=== PATIENT | male | born 1980 | race Caucasian/White ===

== ENCOUNTER 2018-10-17 18:03 | Emergency (ER) | payer BC ==
[2018-10-17 18:13] VITALS: BMI 24.0
--- NOTE | 2018-10-17 18:14 | PDOC ---
Rapid Medical Evaluation Chief Complaint: Shortness of Breath Time Seen by Provider: 10/17/18 18:09 Medical Evaluation: Allergies Allergy/AdvReac Type Severity Reaction Status Date / Time No Known Allergies Allergy Unverified 12/12/14 17:32 10/17/18 18:10 I have performed a brief in-person evaluation of this patient. The patient presents with a chief complaint of: SOB intermittant on and off x 1 month. + suffers from Panic attacks , Had good pghysical 2 weeks ago and prescribed B12 shots/ Ekg and labs WNL Pertinent physical exam findings: Lungs clear, but still with Airhunger I have ordered the following: eKG The patient will proceed to the ED for further evaluation. Discharge Disposition - Diagnosis SOB (shortness of breath) - Referrals - Patient Instructions - Post Discharge Activity
--- NOTE | 2018-10-17 18:20 | PDOC ---
History of Present Illness - General Chief Complaint: Shortness of Breath Stated Complaint: CHEST TIGHTNESS/SOB Time Seen by Provider: 10/17/18 18:09 - History of Present Illness Initial Comments: 10/17/18 18:20 CHIEF COMPLAINT: chest tightness HISTORY OF PRESENT ILLNESS: 38 yo M with no significant PMH presents to ED with intermittent SOB x 6 days. Patient states that since he received his "B12 shot on Monday at my doctor's office, I've felt tight in the chest on and off. He states that the shortness of breath began mostly when he was lying down at night , but over the past few days has started to feel the discomfort during the day as well. He denies hx of anxiety or panic attacks but does report increased stress in the last months. 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 He saw his PCP Dr. Brett Castro one month ago and had "all the bloodwork done, and he said my sugar was maybe a little bit high and that my vitamin B was low, which is why I went to get the shot." No recent travel or sick contacts. PAST MEDICAL HISTORY: Denies past medical history FAMILY HISTORY: Denies SOCIAL HISTORY: Denies tobacco, alcohol, illicit drug use. SURGICAL HISTORY: Denies ALLERGIES: No known drug allergies REVIEW OF SYSTEMS General/Constitutional: Denies fever or chills. Denies weakness, weight change. HEENT: Denies change in vision. Denies ear pain or discharge. Denies sore throat. Cardiovascular:: Intermittent chest tightness x 6 days. Denies chest pain or shortness of breath. Respiratory: Denies cough, wheezing, or hemoptysis. Gastrointestinal: Denies nausea, vomiting, diarrhea or constipation. Denies rectal bleeding. Genitourinary: Denies dysuria, frequency, or change in urination. Musculoskeletal: Denies joint or muscle swelling or pain. Denies neck or back pain. Skin: Denies rash or easy bruising. Neurologic: Denies headache, vertigo, loss of consciousness, or loss of sensation. Psychiatric: Denies depression or anxiety. PHYSICAL EXAM General Appearance: Well-appearing, appropriately dressed. No apparent distress , no intoxication. HEENT: EOMI, PERRLA, normal ENT inspection, normal voice, TMs normal, pharynx normal. No conjunctival pallor. No photophobia, scleral icterus. Neck: Supple. Trachea midline. No tenderness, rigidity, carotid bruit, stridor , lymphadenopathy, or thyromegaly. Respiratory/Chest: Lungs CTAB. No shortness of breath, chest tenderness, respiratory distress, accessory muscle use. No crackles, rales, rhonchi, stridor , wheezing, dullness Cardiovascular: RRR. S1, S2. No JVD, murmur, bradycardia, tachycardia. Vascular Pulses: Dorsalis-Pedis (R): 2+, Dorsalis-Pedis (L): 2+ Gastrointestinal/Abdominal: Normal bowel sounds. Abdomen soft, non-distended. No tenderness or rebound tenderness. No organomegaly, pulsatile mass, guarding , hernia, hepatomegaly, splenomegaly. Lymphatic: No adenopathy, tenderness. Musculoskeletal/Extremities: Normal inspection. FROM of all extremities, normal capillary refill. Pelvis Stable. No CVA tenderness. No tenderness to extremities, pedal edema, swelling, erythema or deformity. Integumentary: Appropriate color, dry, warm. No cyanosis, erythema, jaundice or rash Neurologic: provisioning specialist II-XII intact. Fully oriented, alert. Appropriate mood/affect. Motor strength 5/5. No appreciable EOM palsy, facial droop or sensory deficit. 10/17/18 18:39 10/17/18 18:44 10/17/18 19:54 Past History - Past Medical History Allergies/Adverse Reactions: Allergies Allergy/AdvReac Type Severity Reaction Status Date / Time No Known Allergies Allergy Unverified 12/12/14 17:32 Home Medications: Ambulatory Orders Hydroxyzine HCl 50 mg PO TID PRN #21 tablet 10/17/18 COPD: No - Immunization History Immunization Up to Date: No - Suicide/Smoking/Psychosocial Hx Smoking History: Never smoked Have you smoked in the past 12 months: No Information on smoking cessation initiated: No Hx Alcohol Use: No Drug/Substance Use Hx: No *Physical Exam - Vital Signs Last Vital Signs Temp Pulse Resp BP Pulse Ox 98.6 F 80 18 120/72 98 10/17/18 18:10 10/17/18 18:10 10/17/18 18:10 10/17/18 18:10 10/17/18 18:10 Medical Decision Making - Medical Decision Making 10/17/18 19:57 38 yo M with no significant PMH presents to ED with intermittent SOB x 6 days. Exam grossly unremarkable, pt VS WNL. Clinical presentation consistent with anxiety reaction, unlikely cardiac etiology. -EKG -hydroxyzine -CXR Advised patient to take medication as prescribed and follow up with PCP. Patient states he has a f/u appt scheduled in the next week. Advised patient of signs and symptoms for return to ED. Patient verbalized understanding and agrees to plan. *DC/Admit/Observation/Transfer Diagnosis at time of Disposition: SOB (shortness of breath), Anxiety reaction - Discharge Dispostion Disposition: HOME Condition at time of disposition: Stable Decision to Admit order: No - Prescriptions Prescriptions: Hydroxyzine HCl 50 mg PO TID PRN #21 tablet PRN Reason: Anxiety - Referrals Referrals: Brett Beach MD [Primary Care Provider] - - Patient Instructions Printed Discharge Instructions: Generalized Anxiety Disorder Additional Instructions: Please take medications as prescribed. Follow up with your primary care doctor as planned. If your symptoms persist for more than a week, please make an appointment with the foreign exchange services manager for further evaluation. If you develop shortness of breath, worsening chest pain, swelling to your legs, or any new or worsening symptoms, please return to the ER. - Post Discharge Activity
[2018-10-17] MEDS ORDERED: hydrOXYzine HCL 25 MG TABLET (FP) PO ONE (18:44)
[2018-10-17 21:05] VITALS: BP 111/66; PULSE 62; TEMP 98.2
--- NOTE | 2018-10-18 15:20 | EKG ---
Test Reason : Blood Pressure : / mmHG Vent. Rate : 064 BPM Atrial Rate : 064 BPM P-R Int : 136 ms QRS Dur : 102 ms QT Int : 406 ms P-R-T Axes : 035 030 034 degrees QTc Int : 418 ms NORMAL SINUS RHYTHM INCOMPLETE RIGHT BUNDLE BRANCH BLOCK NONSPECIFIC T WAVE ABNORMALITY ABNORMAL ECG NO PREVIOUS ECGS AVAILABLE Confirmed by SIMBA MICHELE, JAISON ([id number]) on 10/18/2018 3:19:38 PM Referred By: Confirmed By:JAISON COTTRELL MD
== END 2018-10-17 20:56 | disposition home or self-care (01) ==
LOC: JER 18:03
DX: R06.02 Shortness of breath (principal)
CPT/HCPCS: 71046-TC-FY; 93005; 93010; 99282-25

== ENCOUNTER 2021-03-01 12:26 | Emergency (ER) | payer BC ==
[2021-03-01 12:43] VITALS: BP 141/90; PULSE 73; TEMP 97.9; BMI 25.8
== END 2021-03-01 15:10 | disposition home or self-care (01) ==
LOC: JERFT 12:26
DX: M25.551 Pain in right hip (principal)
CPT/HCPCS: 73523-TC-FY; 99283-25